=== PATIENT | male | born 1950 | race African-American/Black ===

== ENCOUNTER 2016-05-07 17:30 | Emergency (ER) | payer OTHER, MEDICARE ==
--- NOTE | 2016-05-07 18:01 | ER Document Report ---
ED Medical Screen (RME) - General Stated Complaint: LEFT BUTTOCK /HIP PAIN Time seen by provider: 18:01 Mode of Arrival: Medic Information source: Patient Notes: 65yo male in by EMS afer falling and injuring his left hip and buttocks. TRAVEL OUTSIDE OF THE [place] IN LAST 30 DAYS: No - Related Data Allergies/Adverse Reactions: Shellfish * [Shellfish] Allergy (Severe, Verified 11/29/15 12:36) Gout Past Medical History - Past Medical History Cardiac Medical History: Reports: Hx Atrial Fibrillation - with RVR, Hx Congestive Heart Failure, Hx Coronary Artery Disease, Hx Hypercholesterolemia, Hx Hypertension, Hx Peripheral Vascular Disease Pulmonary Medical History: Reports: Hx Asthma, Hx Bronchitis, Hx COPD, Hx Pneumonia, Hx Sleep Apnea Endocrine Medical History: Reports: Hx Diabetes Mellitus Type 1, Hx Diabetes Mellitus Type 2 Renal/ Medical History: Reports: Hx Benign Prostatic Hyperplasia, Hx End Stage Renal Disease, Hx Hemodialysis, Hx Peritoneal Dialysis GI Medical History: Reports: Hx Gastroesophageal Reflux Disease Musculoskeltal Medical History: Reports Hx Arthritis, Reports Hx Gout Psychiatric Medical History: Reports: Hx Depression Past Surgical History: Reports: Hx Abdominal Surgery - Peritoneal dialysis catheter, since removed., Hx Cardiac Catheterization, Hx Cardiac Surgery - CABG x8, pacemaker, Hx Coronary Artery Bypass Graft - 2002, 5 vessel CABG, Hx Coronary Stent - x6, Hx Kidney (Renal Surgery) - port in abd and fistula, Hx Open Heart Surgery - 2001, Hx Pacemaker, Hx Tonsillectomy, Hx Vascular Surgery - STENTS-2 IN RIGHT LEG, 1 IN LEFT LEG. LEFT FOREARM AV FISTULA FOR DIALYSIS - Immunizations Immunizations up to date: Yes Hx Diphtheria, Pertussis, Tetanus Vaccination: Yes
[2016-05-07] MEDS ORDERED: ONDANSETRON 4 MG TAB.RAPDIS PO ONE (18:03)
[2016-05-07] MEDS ORDERED: OXYCODONE-ACETAMINOPHEN 5-325 MG TABLET PO ONE (18:03)
[2016-05-07] MEDS ORDERED: LIDOCAINE 5% (700 MG) TRANSDERMAL ADH..PATCH TP ONE (19:47)
[2016-05-07] MEDS ORDERED: KETOROLAC TROMETHAMINE 60 MG/2 ML SDV IM ONE (19:47)
--- NOTE | 2016-05-07 19:47 | ER Document Report ---
ED General - General Chief Complaint: Fall Stated Complaint: LEFT BUTTOCK /HIP PAIN Mode of Arrival: Medic Notes: Patient is a 65-year-old male who presents after having a mechanical fall onto his left buttock 3 days ago. States that he has had a constant dull aching pain to the area that is Progressively worse over the last 3 days which is what prompted him to come to the emergency department today. States that he had a mechanical fall and denies any associated syncope. Denies any injury to any additional location. He has been trying ibuprofen and [place] at home with only minimal improvement of his symptoms. States sitting on the area or touching the area worsens the pain. Denies a history of similar symptoms in the past. He has not seen his primary care physician regarding today's concerns. TRAVEL OUTSIDE OF THE [place] IN LAST 30 DAYS: No - Related Data Allergies/Adverse Reactions: Shellfish * [Shellfish] Allergy (Severe, Verified 05/07/16 18:27) Gout Past Medical History - General Information source: Patient - Social History Smoking Status: Never Smoker Chew tobacco use (# tins/day): No Frequency of alcohol use: None Drug Abuse: None Lives with: Spouse/Significant other Family History: Reviewed & Not Pertinent, Hypertension Patient has suicidal ideation: No Patient has homicidal ideation: No - Past Medical History Cardiac Medical History: Reports: Hx Atrial Fibrillation - with RVR, Hx Congestive Heart Failure, Hx Coronary Artery Disease, Hx Hypercholesterolemia, Hx Hypertension, Hx Peripheral Vascular Disease Pulmonary Medical History: Reports: Hx Asthma, Hx Bronchitis, Hx COPD, Hx Pneumonia, Hx Sleep Apnea Endocrine Medical History: Reports: Hx Diabetes Mellitus Type 1, Hx Diabetes Mellitus Type 2 Renal/ Medical History: Reports: Hx Benign Prostatic Hyperplasia, Hx End Stage Renal Disease, Hx Hemodialysis, Hx Peritoneal Dialysis GI Medical History: Reports: Hx Gastroesophageal Reflux Disease Musculoskeltal Medical History: Reports Hx Arthritis, Reports Hx Gout Psychiatric Medical History: Reports: Hx Depression Past Surgical History: Reports: Hx Abdominal Surgery - Peritoneal dialysis catheter, since removed., Hx Cardiac Catheterization, Hx Cardiac Surgery - CABG x8, pacemaker, Hx Coronary Artery Bypass Graft - 2002, 5 vessel CABG, Hx Coronary Stent - x6, Hx Kidney (Renal Surgery) - port in abd and fistula, Hx Open Heart Surgery - 2002, Hx Pacemaker, Hx Tonsillectomy, Hx Vascular Surgery - STENTS-2 IN RIGHT LEG, 1 IN LEFT LEG. LEFT FOREARM AV FISTULA FOR DIALYSIS - Immunizations Immunizations up to date: Yes Hx Diphtheria, Pertussis, Tetanus Vaccination: Yes Hx Pneumococcal Vaccination: 02/28/13 Review of Systems - Review of Systems Notes: Constitutional: Negative for fever. Eyes: Negative for visual changes. ENT: Negative for facial injury Cardiovascular: Negative for chest injury. Respiratory: Negative for shortness of breath. Gastrointestinal: Negative for abdominal injury. Genitourinary: Negative for genital injury Musculoskeletal: Negative for back injury. Positive for left buttock injury Skin: Negative for laceration/abrasions. Neurological: Negative for head injury. Physical Exam - Vital signs Vitals: Temp Pulse Resp BP Pulse Ox 97.9 F 54 L 22 H 128/68 H 93 05/07/16 18:10 05/07/16 18:10 05/07/16 18:10 05/07/16 18:10 05/07/16 18:10 Interpretation: Tachycardic Notes: PHYSICAL EXAMINATION: GENERAL: Well-appearing, no acute distress. HEAD: Atraumatic, normocephalic. EYES: Pupils equal round and reactive to light, extraocular movements intact, sclera anicteric, conjunctiva are normal. ENT: nares patent, no oral pharyngeal trauma. No hemotympanum, no Bautista's sign , no raccoon eyes. NECK: No midline cervical spine tenderness. Patient able to move their head to 45 bilaterally without any discomfort. LUNGS: Breath sounds clear to auscultation bilaterally and equal. No wheezes rales or rhonchi. HEART: Regular rate and rhythm without murmurs. CHEST WALL: No ecchymosis over the chest wall. ABDOMEN: Soft, nontender, normoactive bowel sounds. No guarding, no rebound. No seatbelt sign. EXTREMITIES: Normal range of motion, no pitting or edema. No long bone deformities. BACK: No midline spinal tenderness, step-offs, or deformities. NEUROLOGICAL: Face symmetric. Tongue protrudes midline. Extraocular motions intact. Pupils are 2 mm and equally reactive. Normal speech, normal gait. 5 out of 5 strength in both the distal and proximal upper and lower extremities bilaterally. Sensation is grossly intact throughout. Finger to nose testing normal. Pronator drift normal. PSYCH: Normal mood, normal affect. SKIN: Warm, Dry, normal turgor, there is bruising over the left buttock Course - Re-evaluation Re-evalutation: 05/08/16 03:22 Presentation of a well patient in no acute distress, vitals within normal limits after a fall. No focal neurologic deficits on exam, no evidence of basilar skull fracture on exam without evidence of hemotympanum, raccoon eyes, or periauricular hematoma. No papilledema. Patient is not on anticoagulation. GCS is 15. No loss of consciousness. No episodes of vomiting. Patient is therefore negative via [place] head CT criteria and CT imaging will not be obtained at this time. Patient also evaluated by nexus criteria and found to be negative. Patient is also negative by [place] C-spine criteria. No clinical evidence to suggest increased risk of cervical spine fracture. No indication for further imaging of the cervical spine. Patient has no focal deformities but does have bruising over the left buttock. Pelvis xray unremarkable. Chest and abdominal exam are benign without any focal tenderness, shortness of breath, or bruising over the chest or abdominal wall. Patient has no flank tenderness. There is no obvious findings on trauma exam today and therefore no further imaging or evaluation will be obtained at this time. I've instructed the patient to return to emergency room immediately should they have any worsening or new symptoms that are concerning to them. - Vital Signs Vital signs: Temp Pulse Resp BP Pulse Ox 98.2 F 86 20 121/67 96 05/07/16 20:28 05/07/16 20:28 05/07/16 20:28 05/07/16 20:28 05/07/16 20:28 - Diagnostic Test Radiology reviewed: Image reviewed, Reports reviewed Radiology results interpreted by me: 05/08/16 03:23 Pelvis x-ray: No acute fracture Discharge - Discharge Clinical Impression: Left buttock pain Fall Qualifiers: Encounter type: initial encounter Qualified Code(s): W19.XXXA - Unspecified fall, initial encounter Condition: Good Disposition: HOME, SELF-CARE Additional Instructions: You have been seen in the Emergency Department (ED) today following a fall your workup today did not reveal any injuries that require you to stay in the hospital. You can expect, though, to be stiff and sore for the next several days. You can take ibuprofen 600 mg every 6 hours as needed for pain. You can apply a hot pack or electric heating pad to the sore areas. You can also use topical "Aspercreme with lidocaine" to sore areas as needed. Please follow up with your primary care doctor as soon as possible regarding today's ED visit and your recent accident. Call your doctor or return to the ED if you develop a sudden or severe headache , confusion, slurred speech, facial droop, weakness or numbness in any arm or leg, extreme fatigue, vomiting more than two times, severe abdominal pain, or other symptoms that concern you. Referrals: NELA BAEZ MD [Primary Care Provider] - Follow up as needed
[2016-05-07 21:09] VITALS: BP 121/67
== END 2016-05-07 20:28 | disposition home or self-care (01) ==
LOC: ER 17:30
DX: M53.3 Sacrococcygeal disorders, not elsewhere classified (principal); M25.552 Pain in left hip; W19.XXXA Unspecified fall, initial encounter
CPT/HCPCS: 99284; 96372; 73502; J1885; S0119

== ENCOUNTER → 2017-07-26 | Outpatient (CLI) | payer MEDICARE, OTHER ==
--- NOTE | 2017-07-26 13:19 | RADIOLOGY REPORT (SQ) ---
EXAM DESCRIPTION: FOOT LEFT COMPLETE COMPLETED DATE/TIME: 07/26/2017 10:57 am REASON FOR STUDY: NON-PRS CHRONIC ULCER OTH PRT LEFT FOOT W FAT LAYER EXPOSED L97.522 NON-PRS CHRON IC ULCER OTH PRT LEFT FOOT W FAT LAYER COMPARISON: 07/26/2013, 07/19/2013, 06/01/2013 NUMBER OF VIEWS: Three views. TECHNIQUE: AP, lateral and oblique radiographic images acquired of the left foot. LIMITATIONS: None. FINDINGS: Grossly normal bone density. 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 There is densely ossified periosteal [place] at the distal 2nd and 3rd metatarsals from old healed osteomyelitis. No aggressive bony resorption worrisome for active osteomyelitis. IMPRESSION: No plain film findings worrisome for active osteomyelitis. TECHNICAL DOCUMENTATION: JOB ID: [id number] [employer]- All Rights Reserved Reading location - IP/workstation name: [email or web address]
== END ==
LOC: OD 10:35
PROVIDERS: ATTEND Preventive Medicine Undersea and Hyperbaric Medicine
DX: L97.522 Non-pressure chronic ulcer of other part of left foot with fat layer exposed (principal)

== ENCOUNTER 2017-12-25 17:30 | Emergency (ER) | payer MEDICARE, OTHER ==
[2017-12-25] MEDS ORDERED: ASPIRIN 81 MG TABLET, CHEWABLE PO ONE (17:31)
[2017-12-25 18:17] LABS: ABSOLUTE BASOPHILS # (AUTO) 0.1 10^3/uL (0.0-0.2); ABSOLUTE EOSINOPHILS # (AUTO) 0.1 10^3/uL (0.0-0.6); ABSOLUTE LYMPHOCYTES (AUTO) 0.4 10^3/uL (0.5-4.7); ABSOLUTE MONOCYTES (AUTO) 0.8 10^3/uL (0.1-1.4); ABSOLUTE NEUT (AUTO) 4.8 10^3/uL (1.7-8.2); BASOPHILS % (AUTO) 1.1 % (0-2); EOSINOPHILS % (AUTO) 2.2 % (0-6); HEMATOCRIT 29.7 % (37.9-51.0); HEMOGLOBIN 9.5 g/dL (13.5-17.0); MEAN CORPUSCULAR HEMOGLOBIN 29.4 pg (27.0-33.4); MEAN CORPUSCULAR VOLUME 92 fl (80-97); PLATELET COUNT 124 10^3/uL (150-450); RED BLOOD COUNT 3.23 10^6/uL (4.35-5.55); RED CELL DISTRIBUTION WIDTH 19.4 % (11.5-14.0); SEGMENTED NEUTROPHILS % (AUTO) 77.7 % (42-78); TOTAL CELLS COUNTED % (AUTO) 100 %; WHITE BLOOD COUNT 6.2 10^3/uL (4.0-10.5)
--- NOTE | 2017-12-25 18:29 | RADIOLOGY REPORT (SQ) ---
EXAM DESCRIPTION: CHEST SINGLE VIEW COMPLETED DATE/TIME: 12/25/2017 6:17 pm REASON FOR STUDY: cp COMPARISON: 04/04/2016. NUMBER OF VIEWS: One view. TECHNIQUE: Single frontal radiographic view of the chest acquired. LIMITATIONS: None. FINDINGS: LUNGS AND PLEURA: No opacities, masses or pneumothorax. No pleural effusion. MEDIASTINUM AND HILAR STRUCTURES: No masses or contour abnormality. HEART AND VASCULATURE: Cardiac enlargement. Mild vascular congestion. BONES: No acute findings. HARDWARE: Sternotomy wires. OTHER: No other significant finding. IMPRESSION: CARDIOMEGALY. MILD VASCULAR CONGESTION. TECHNICAL DOCUMENTATION: JOB ID: [id number] [employer]- All Rights Reserved Reading location - IP/workstation name: [email or web address]
[2017-12-25 18:41] LABS: ALANINE AMINOTRANSFERASE 25 U/L (21-72); ALBUMIN 4.3 g/dL (3.5-5.0); ALKALINE PHOSPHATASE 134 U/L (38-126); ANION GAP 19 (5-19); ASPARTATE AMINO TRANSFERASE 34 U/L (17-59); BILIRUBIN,DIRECT 0.6 mg/dL (0.0-0.4); BILIRUBIN,TOTAL 0.7 mg/dL (0.2-1.3); BLOOD UREA NITROGEN 19 mg/dL (7-20); CALCIUM 10.2 mg/dL (8.4-10.2); CARBON DIOXIDE 24 mmol/L (22-30); CHLORIDE 98 mmol/L (98-107); CREATINE KINASE 55 U/L (55-170); GLUCOSE 85 mg/dL (75-110); POTASSIUM 4.7 mmol/L (3.6-5.0); SODIUM 141.4 mmol/L (137-145); TOTAL PROTEIN 7.8 g/dL (6.3-8.2)
[2017-12-25 18:54] LABS: CREATINE KINASE MB 1.03 ng/mL (<4.55)
[2017-12-25 18:57] LABS: TROPONIN I 0.378 ng/mL
[2017-12-25] MEDS ORDERED: MORPHINE SULFATE 10 MG/ML INJ IV ONE ×2 (19:11→20:19)
[2017-12-25] MEDS ORDERED: NITROGLYCERIN 2% OINTMENT 1 GM PACKET TP ONE (19:11)
[2017-12-25] MEDS ORDERED: HEPARIN SODIUM,PORCINE/D5W 25,000 UNIT/250 ML RTUINJ IV PRN (19:12)
[2017-12-25] MEDS ORDERED: HEPARIN SOD (PORCINE) 1,000 UNIT/ML 10 ML VIAL IV ONE (19:12)
--- NOTE | 2017-12-25 19:18 | ER Document Report ---
ED General - General Chief Complaint: Chest Pain Stated Complaint: CHEST PAIN Time Seen by Provider: 12/25/17 19:03 TRAVEL OUTSIDE OF THE [place] IN LAST 30 DAYS: No - HPI Notes: 67-year-old male with a known history of diabetes, CAD, end-stage renal disease on dialysis presents with chest pain. Patient describes sudden onset around 3: 30 PM of substernal chest pain is grossly nonradiating. Of note, is been vomiting for the last 3 days intermittently, food and fluid, no coffee grounds or hematemesis. Pain is somewhat pressure-like and aching. States it is sometimes worse with motion. No discrete injury. He has a history of 5 vessel bypass remotely, believes he has had stents but is otherwise unclear about his cardiac history. No other modifying factors, no other associated symptoms, no other provocative or palliative factors. Indicates that today he had a full and regular dialysis. - Related Data Allergies/Adverse Reactions: Shellfish * [Shellfish] Allergy (Severe, Verified 12/25/17 18:00) Gout Past Medical History - Social History Smoking Status: Former Smoker Frequency of alcohol use: None Drug Abuse: None Family History: Reviewed & Not Pertinent, Hypertension Patient has suicidal ideation: No Patient has homicidal ideation: No - Past Medical History Cardiac Medical History: Reports: Hx Atrial Fibrillation - with RVR, Hx Congestive Heart Failure, Hx Coronary Artery Disease, Hx Hypercholesterolemia, Hx Hypertension, Hx Peripheral Vascular Disease Pulmonary Medical History: Reports: Hx Asthma, Hx Bronchitis, Hx COPD, Hx Pneumonia, Hx Sleep Apnea Endocrine Medical History: Reports: Hx Diabetes Mellitus Type 1, Hx Diabetes Mellitus Type 2 Renal/ Medical History: Reports: Hx Benign Prostatic Hyperplasia, Hx End Stage Renal Disease, Hx Hemodialysis. Denies: Hx Peritoneal Dialysis - T//SUN GI Medical History: Reports: Hx Gastroesophageal Reflux Disease Musculoskeletal Medical History: Reports Hx Arthritis, Reports Hx Gout Psychiatric Medical History: Reports: Hx Depression Past Surgical History: Reports: Hx Abdominal Surgery - Peritoneal dialysis catheter, since removed., Hx Cardiac Catheterization, Hx Cardiac Surgery - CABG x8, pacemaker, Hx Coronary Artery Bypass Graft - 2001, 5 vessel CABG, Hx Coronary Stent - x6, Hx Kidney (Renal Surgery) - port in abd and fistula, Hx Open Heart Surgery - 2001, Hx Orthopedic Surgery - left AKA, Hx Pacemaker, Hx Tonsillectomy, Hx Vascular Surgery - STENTS-2 IN RIGHT LEG, 1 IN LEFT LEG. LEFT FOREARM AV FISTULA FOR DIALYSIS - Immunizations Immunizations up to date: Yes Hx Diphtheria, Pertussis, Tetanus Vaccination: Yes Hx Pneumococcal Vaccination: 02/28/13 Review of Systems - Review of Systems Notes: Review of systems as in the history of present illness, otherwise negative x 10 systems. Physical Exam - Vital signs Vitals: Pulse Ox 98 12/25/17 17:30 - Notes Notes: General: Well developed . HEENT: Normocephalic, atraumatic. Pupils equal round reactive to light. No JVD. Chest: No trauma. There is exquisitely reproducible midsternal chest tenderness without trauma or skin abnormality. Respiratory: Good air exchange, normal excursion. Cardiac: Regular rhythm. No murmurs or gallops. Abdomen: Soft, benign. Nondistended. Nontender. Back: No asymmetry or gross abnormality. Motor: Grossly normal power and tone. Neurologic: Alert, nonfocal. Cranial nerves II-12 are intact. Sensation intact. Vascular: Well perfused. Normal peripheral pulses. Skin: No petechiae or purpura. Remedies: Left AV fistula is noted. Normal bruit and thrill. Course - Re-evaluation Re-evalutation: 12/25/17 19:18 67-year-old male the after mentioned symptoms. Of note, his ECG appears to have some ischemic changes in the inferior lateral leads with mild ST depressions. These appear new compared to previous ECG from a year or 2 ago. Patient be treated with aspirin, morphine, transdermal nitrates. We will empirically heparinized. Of note, his initial troponin is elevated at 0.3. His underlying renal disease may have a component in terms of clearance but should not in an of itself it resulted in elevation. 12/25/17 22:07 Patient had near complete resolution of his pain with transdermal nitrates morphine and aspirin. Of note, he later complained of epigastric pain. When questioned at length, indicates been going on for greater than 3 months and is a chronic issue. Denies any alcohol abuse. I have added on LFTs and lipase. He has trace elevation in lipase and alk phos. Patient does have continued persistent ST depressions inferior and laterally. Of note, his labs are reviewed, he has pre-existing renal failure. He has an elevated troponin at 0.37. Patient remains pain-free at the time of transfer. On the patient's renal failure would lead to poor troponin clearance, initial event likely was a result of cardiac ischemia. There are currently no available beds, patient be transferred to [facility] where he can undergo definitive evaluation and management by cardiology. He can also undergo further workup of his chronic abdominal pain. 12 Lead ECG Analysis A 12 lead ECG is obtained and shows a sinus rhythm, normal QRS, normal QTC. Lateral and inferior ST depressions are noted. These appear to be new compared to previous ECG in the system. 12/25/17 22:10 12/25/17 23:05 Patient is evaluated just prior to transfer. Remains pain-free. - Vital Signs Vital signs: Temp Pulse Resp BP Pulse Ox 97.9 F 88 20 142/85 H 100 12/25/17 18:07 12/25/17 18:07 12/25/17 22:56 12/25/17 22:56 12/25/17 22:56 - Laboratory Result Diagrams: 12/25/17 17:54 12/25/17 17:54 Laboratory results interpreted by me: 12/25/17 12/25/17 12/25/17 17:54 17:54 17:54 RBC 3.23 L Hgb 9.5 L Hct 29.7 L RDW 19.4 H Plt Count 124 L Lymphocytes % 6.0 L Absolute Lymphocytes 0.4 L Creatinine 4.81 H Est GFR ( Amer) 15 L Est GFR (Non-Af Amer) 12 L Direct Bilirubin 0.6 H Alkaline Phosphatase 134 H Lipase 332.3 H Discharge - Discharge Clinical Impression: ACS (acute coronary syndrome) Condition: Good Disposition: [facility]
[2017-12-25 19:24] LABS: INTERNATIONAL RATION (INR) 1.13; PROTHROMBIN TIME 15.1 SEC (11.4-15.4)
[2017-12-25 19:25] LABS: PARTIAL THROMBOPLASTIN TIME 34.3 SEC (23.5-35.8)
--- NOTE | 2017-12-25 19:56 | EKG REPORT ---
SEVERITY:- ABNORMAL ECG - SINUS TACHYCARDIA LEFT ANTERIOR FASCICULAR BLOCK PROBABLE LVH WITH SECONDARY REPOL ABNRM PROLONGED QT INTERVAL : Confirmed by: Royce Thomas MD 25-Dec-2017 19:56:09
[2017-12-25 21:24] LABS: LIPASE 332.3 U/L (23-300)
[2017-12-25] MEDS ORDERED: HEPARIN SOD (PORCINE) 1,000 UNIT/ML 10 ML VIAL IV PRN (22:12)
[2017-12-25 23:03] VITALS: BP 142/85
--- NOTE | 2017-12-26 07:52 | EKG REPORT ---
SEVERITY:- ABNORMAL ECG - ATRIAL FIBRILLATION VENTRICULAR PREMATURE COMPLEX LEFT ANTERIOR FASCICULAR BLOCK PROBABLE LVH WITH SECONDARY REPOL ABNRM PROLONGED QT INTERVAL : Confirmed by: Royce Thomas MD 26-Dec-2017 07:51:58
== END 2017-12-25 23:07 | disposition short-term general hospital (02) ==
LOC: ER 17:30
DX: I24.9 Acute ischemic heart disease, unspecified (principal); I13.2 Hypertensive heart and chronic kidney disease with heart failure and with stage 5 chronic kidney disease, or end stage renal disease; E11.22 Type 2 diabetes mellitus with diabetic chronic kidney disease; N18.6 End stage renal disease; I50.9 Heart failure, unspecified; R07.9 Chest pain, unspecified; Z99.2 Dependence on renal dialysis; J44.9 Chronic obstructive pulmonary disease, unspecified
CPT/HCPCS: 93005; 96376; 99285; 96375; 96365; 96366; 36415; 82553; 82550; 83690; 83735; 85025; 85610; 85730; 80053; 84484; 71045; 93010; J1644 ×2; A9270; J2270

== ENCOUNTER → 2018-05-13 | Outpatient (CLI) | payer MEDICARE, OTHER ==
--- NOTE | 2018-05-13 11:54 | RADIOLOGY REPORT (SQ) ---
EXAM DESCRIPTION: TIBIA FIBULA RIGHT COMPLETED DATE/TIME: 05/13/2018 10:23 am REASON FOR STUDY: NON-PRESSURE CHRONIC ULCER OF RIGHT CALF W FAT LAYER EXPOSED L97.512 NON-PRS DOCUMENT CONTROL MANAGER ROBERT ULCER OTH PRT RIGHT FOOT W FAT LAYER L97.212 NON-PRESSURE CHRONIC ULCER OF RIGHT CALF W FAT LAYE R COMPARISON: None. NUMBER OF VIEWS: Two views. TECHNIQUE: Two radiographic images acquired of the right tibia and fibula to include the knee and an kle in at least one projection. LIMITATIONS: None. FINDINGS: MINERALIZATION: Normal. BONES: No acute fracture or dislocation. No worrisome bone lesions. SOFT TISSUES: Diffuse swelling. No foreign body. Vascular calcifications. OTHER: No other significant finding. IMPRESSION: No evidence of osteomyelitis. TECHNICAL DOCUMENTATION: JOB ID: [id number] [employer]- All Rights Reserved Reading location - IP/workstation name: [email or web address]
== END ==
LOC: WC 09:39
PROVIDERS: ATTEND Preventive Medicine Undersea and Hyperbaric Medicine
DX: E11.621 Type 2 diabetes mellitus with foot ulcer (principal); L97.512 Non-pressure chronic ulcer of other part of right foot with fat layer exposed; L97.212 Non-pressure chronic ulcer of right calf with fat layer exposed

== ENCOUNTER 2018-09-26 14:30 | Emergency (ER) | payer MEDICARE, OTHER ==
--- NOTE | 2018-09-26 15:05 | ER Document Report ---
ED Medical Screen (RME) - General Chief Complaint: Foot Pain Stated Complaint: FOOT PAIN Time Seen by Provider: 09/26/18 14:56 Primary Care Provider: NELA BEAZ MD [Primary Care Provider] - Follow up as needed TRAVEL OUTSIDE OF THE [place] IN LAST 30 DAYS: No - HPI Notes: 09/26/18 15:03 Patient is a 68-year-old male with a history of AKA left leg, hyperglyceridemia, hypertension, end-stage renal disease (see on dialysis every Sunday, , Sunday), previous diagnosis of diabetes (not currently on any medications) who presents complaining of wounds to the right anterior knee over the past few days and toes of his right foot that is been present for the past 2 to 3 weeks. Patient has noticed blackening of his toes and a foul odor to 1 of the wounds. Denies drug allergies. He did have dialysis today without any complications. Denies ANGEL, fever, neck pain, URI, CP, SOB, Abd pain, dysuria, back pain. I have treated and performed a rapid initial assessment of this patient. A comprehensive ED assessment and evaluation of the patient, analysis of test results and completion of medical decision making process will be conducted by additional ED providers. PHYSICAL EXAMINATION: GENERAL: Well-appearing, well-nourished and in no acute distress. A&Ox4. Answers questions appropriately. LUNGS: Breath sounds clear to auscultation bilaterally and equal. No wheezes rales or rhonchi. HEART: Regular rate and rhythm without murmurs, rubs, gallops. Rt knee: + foul smelling wound anterior knee with + tenderness. Rt foot: + necrotic appearing 2nd-4th digits with open sores/wounds noted. - Related Data Allergies/Adverse Reactions: No Known Allergies Allergy (Verified 09/26/18 14:32) Past Medical History - Past Medical History Cardiac Medical History: Reports: Hx Atrial Fibrillation - with RVR, Hx Congestive Heart Failure, Hx Coronary Artery Disease, Hx Hypercholesterolemia, Hx Hypertension, Hx Peripheral Vascular Disease Pulmonary Medical History: Reports: Hx Asthma, Hx Bronchitis, Hx COPD, Hx Pneumonia, Hx Sleep Apnea Endocrine Medical History: Reports: Hx Diabetes Mellitus Type 1, Hx Diabetes Mellitus Type 2 Renal/ Medical History: Reports: Hx Benign Prostatic Hyperplasia, Hx End Stage Renal Disease, Hx Hemodialysis. Denies: Hx Peritoneal Dialysis - T//SUN GI Medical History: Reports: Hx Gastroesophageal Reflux Disease Musculoskeltal Medical History: Reports Hx Arthritis, Reports Hx Gout Psychiatric Medical History: Reports: Hx Depression Past Surgical History: Reports: Hx Abdominal Surgery - Peritoneal dialysis catheter, since removed., Hx Cardiac Catheterization, Hx Cardiac Surgery - CABG x8, pacemaker, Hx Coronary Artery Bypass Graft - 2002, 5 vessel CABG, Hx Coronary Stent - x6, Hx Kidney (Renal Surgery) - port in abd and fistula, Hx Open Heart Surgery - 2001, Hx Orthopedic Surgery - left AKA, Hx Pacemaker, Hx Tonsillectomy, Hx Vascular Surgery - STENTS-2 IN RIGHT LEG, 1 IN LEFT LEG. LEFT FOREARM AV FISTULA FOR DIALYSIS - Immunizations Immunizations up to date: Yes Hx Diphtheria, Pertussis, Tetanus Vaccination: Yes Physical Exam - Vital signs Vitals: Temp Pulse Resp BP Pulse Ox 98.2 F 87 18 178/69 H 95 09/26/18 14:35 09/26/18 14:35 09/26/18 14:35 09/26/18 14:35 09/26/18 14:35 Course - Vital Signs Vital signs: Temp Pulse Resp BP Pulse Ox 98.2 F 87 18 178/69 H 95 09/26/18 14:35 09/26/18 14:35 09/26/18 14:35 09/26/18 14:35 09/26/18 14:35 Doctor's Discharge - Discharge Referrals: NELA BAEZ MD [Primary Care Provider] - Follow up as needed
--- NOTE | 2018-09-26 15:48 | RADIOLOGY REPORT (SQ) ---
EXAM DESCRIPTION: FOOT RIGHT COMPLETE COMPLETED DATE/TIME: 09/26/2018 3:20 pm REASON FOR STUDY: ?osteo 2nd-4th digits, + wounds/black COMPARISON: 12/04/2014, 03/15/2015 NUMBER OF VIEWS: Three views. TECHNIQUE: AP, lateral and oblique radiographic images acquired of the right foot. LIMITATIONS: None. FINDINGS: MINERALIZATION: Normal. BONES: Redemonstrated postoperative findings of distal right 5th metatarsal resection. There is bony resorption of the distal phalanx great toe seen on AP view, new from prior examination dated 5. Evaluation of the remaining digits is difficult due to flexion although there is no obvious erosi on or sclerosis. JOINTS: No effusions. SOFT TISSUES: No soft tissue swelling. No foreign body. OTHER: No other significant finding. IMPRESSION: 1. No fracture or dislocation of the right foot. Redemonstrated postoperative findings o f distal right 5th metatarsal resection. 2. There is bony resorption of the distal phalanx great toe seen on AP view, new from prior examinati on dated 12/04/2014 and concerning for osteomyelitis. 3. Evaluation of the remaining digits is difficult due to flexion although there is no obvious erosio n or sclerosis. Consider MRI to more sensitively evaluate for marrow edema and osteomyelitis if susp ected. TECHNICAL DOCUMENTATION: JOB ID: [id number] [employer]- All Rights Reserved Reading location - IP/workstation name: [email or web address]
--- NOTE | 2018-09-26 15:50 | RADIOLOGY REPORT (SQ) ---
EXAM DESCRIPTION: KNEE RIGHT 4 VIEWS COMPLETED DATE/TIME: 09/26/2018 3:20 pm REASON FOR STUDY: wound anterior knee COMPARISON: None. NUMBER OF VIEWS: Four views. TECHNIQUE: AP, lateral, and both oblique radiographic images acquired of the right knee. LIMITATIONS: None. FINDINGS: MINERALIZATION: Osteopenia. BONES: No acute fracture or dislocation. No worrisome bone lesions. JOINT: No effusion. SOFT TISSUES: No soft tissue swelling. No radio-opaque foreign body. OTHER: Extensive vascular calcinosis about the right knee. IMPRESSION: No fracture or dislocation of the right knee. TECHNICAL DOCUMENTATION: JOB ID: [id number] [employer]- All Rights Reserved Reading location - IP/workstation name: [email or web address]
[2018-09-26 16:23] LABS: ABSOLUTE BASOPHILS # (AUTO) 0.1 10^3/uL (0.0-0.2); ABSOLUTE EOSINOPHILS # (AUTO) 0.2 10^3/uL (0.0-0.6); ABSOLUTE LYMPHOCYTES (AUTO) 0.4 10^3/uL (0.5-4.7); ABSOLUTE MONOCYTES (AUTO) 0.6 10^3/uL (0.1-1.4); BASOPHILS % (AUTO) 1.2 % (0-2); EOSINOPHILS % (AUTO) 3.6 % (0-6); HEMATOCRIT 36.8 % (37.9-51.0); HEMOGLOBIN 11.9 g/dL (13.5-17.0); LYMPHOCYTES % (AUTO) 6.9 % (13-45); MEAN CORPUSCULAR HEMOGLOBIN 28.5 pg (27.0-33.4); MEAN CORPUSCULAR HGB CONC 32.4 g/dL (32.0-36.0); MEAN CORPUSCULAR VOLUME 88 fl (80-97); MONOCYTES % (AUTO) 12.3 % (3-13); PLATELET COUNT 156 10^3/uL (150-450); RED BLOOD COUNT 4.18 10^6/uL (4.35-5.55); RED CELL DISTRIBUTION WIDTH 17.3 % (11.5-14.0); TOTAL CELLS COUNTED % (AUTO) 100 %; WHITE BLOOD COUNT 5.3 10^3/uL (4.0-10.5)
[2018-09-26 16:52] LABS: ALANINE AMINOTRANSFERASE 19 U/L (21-72); ALBUMIN 5.2 g/dL (3.5-5.0); ALKALINE PHOSPHATASE 273 U/L (38-126); BILIRUBIN,DIRECT 0.7 mg/dL (0.0-0.4); BILIRUBIN,TOTAL 0.9 mg/dL (0.2-1.3); BLOOD UREA NITROGEN 34 mg/dL (7-20); CALCIUM 9.5 mg/dL (8.4-10.2); GLUCOSE 82 mg/dL (75-110); POTASSIUM 5.6 mmol/L (3.6-5.0); TOTAL PROTEIN 9.9 g/dL (6.3-8.2)
[2018-09-26 16:57] LABS: CARBON DIOXIDE 29 mmol/L (22-30); CHLORIDE 94 mmol/L (98-107); SODIUM 143.2 mmol/L (137-145)
[2018-09-26 17:00] LABS: ASPARTATE AMINO TRANSFERASE 15 U/L (17-59)
[2018-09-26 17:06] LABS: ANION GAP 20 (5-19)
--- NOTE | 2018-09-26 18:13 | XCELERA REPORT ---
[address] [address] Lower Extremity Arterial Evaluation Name: KALIA SANCHEZ Age: 68 yrs Gender: Male : 1950 Patient Status: Emergency Patient Location: ER Study Date: 09/26/2018 04:57 PM Procedure: A color flow and duplex scan of the lower extremity arteries was performed on the right with velocity and waveform anaylsis. Reason For Study: diminished pulse, PAD, recent stent Ordering Physician: WILL GOLDBERG Performed By: Dipti Cunningham Measurements and Calculations Right Left MIXED [employer] PSV 126.3 cm/sec Prox PFA PSV -172.0 cm/sec Prox SFA PSV -16.1 cm/sec Mid SFA PSV -37.9 cm/sec Dist SFA PSV -58.5 cm/sec Prox Pop A PSV 45.9 cm/sec Dist Pop A PSV -35.8 cm/sec Prox WENCESLAO PSV 24.2 cm/sec Dist WENCESLAO PSV 41.5 cm/sec Prox [employer] PSV 33.3 cm/sec Prox Jag A 33.9 cm/sec PSV Mid Jag A PSV 31.1 cm/sec Cristobal Pedis PSV 32.4 cm/sec Right Side Arterial Evaluation Normal velocity and monophasic waveforms, spectral broadening noted in the Common Femoral artery. Monophasic with low normal velocity in the Popliteal. Occluded Posterior tibial and Peroneal arteries. Reconstituted with very low velocities, spectral broadening and monophasic flow in the infrageniculate vessels . Ankle Brachial index not obtained . Critical Findings Discussed with Dr. Goldberg in the emergency room at about 1800. Interpretation Summary Severe hemodynamically significant lesions in the right lower extremity only, on duplex imaging, at rest. Inflow disease with severe sequential changes in the Femoral and infrageniculate vessels. Almost no flow in the low leg. Compatible with tissue loss. : WILL GOLDBERG > Esvin Quintero
[2018-09-26] MEDS ORDERED: HEPARIN SODIUM,PORCINE/D5W 25,000 UNIT/250 ML RTUINJ IV PRN (18:53)
[2018-09-26] MEDS ORDERED: HEPARIN SOD (PORCINE) 1,000 UNIT/ML 10 ML VIAL IV ONE (18:53)
[2018-09-26] MEDS ORDERED: SODIUM POLYSTYRENE SULFONATE 15 GM/60 ML PO ONE (18:57)
[2018-09-26 19:09] LABS: VENOUS BLOOD BASE EXCESS 6.3 mmol/L; VENOUS BLOOD HCO3 31.1 mmol/L (20-32); VENOUS BLOOD PCO2 45.6 mmHg (35-63); VENOUS BLOOD PH 7.45 (7.30-7.42)
[2018-09-26] MEDS ORDERED: ONDANSETRON HCL INJ/PF 4 MG/2 ML SDV IV ONE (19:20)
[2018-09-26] MEDS ORDERED: MORPHINE SULFATE 10 MG/ML INJ IV ONE (19:20)
--- NOTE | 2018-09-26 19:42 | ER Document Report ---
ED General - General Chief Complaint: Foot Pain Stated Complaint: FOOT PAIN Time Seen by Provider: 09/26/18 14:56 Primary Care Provider: NELA BAEZ MD [Primary Care Provider] - Follow up as needed TRAVEL OUTSIDE OF THE [place] IN LAST 30 DAYS: No - HPI Notes: Patient is a 68-year-old male, complicated medical history including end-stage renal disease and peripheral artery disease, who presents to the emergency department for evaluation of sores on his second, third, fourth toes. He states that been going on for about a week. He states that recently he had vascular intervention by Dr. Ortega at [facility]. He states he was told to call if there are any complications, but he has not yet called. He denies any fevers or chills. No nausea or vomiting. He states he has diminished sensation to his right foot. He does have a left AKA. He states t hat he has a prosthesis but he is getting a new one. He currently has a power chair. He notes that he was dialyzed today. He states he had 4 pounds taken off. He normally takes Kayexalate at home as well. He states he has not been home to take it today. - Related Data Allergies/Adverse Reactions: No Known Allergies Allergy (Verified 09/26/18 14:32) Past Medical History - General Information source: Patient - Social History Smoking Status: Never Smoker Frequency of alcohol use: None Drug Abuse: None Family History: Reviewed & Not Pertinent, Hypertension Patient has suicidal ideation: No Patient has homicidal ideation: No - Past Medical History Cardiac Medical History: Reports: Hx Atrial Fibrillation - with RVR, Hx Congestive Heart Failure, Hx Coronary Artery Disease, Hx Hypercholesterolemia, Hx Hypertension, Hx Peripheral Vascular Disease Pulmonary Medical History: Reports: Hx Asthma, Hx Bronchitis, Hx COPD, Hx Pneumonia, Hx Sleep Apnea Endocrine Medical History: Reports: Hx Diabetes Mellitus Type 2 - Not currently on medication Renal/ Medical History: Reports: Hx Benign Prostatic Hyperplasia, Hx End Stage Renal Disease, Hx Hemodialysis. Denies: Hx Peritoneal Dialysis - T//SUN GI Medical History: Reports: Hx Gastroesophageal Reflux Disease Musculoskeletal Medical History: Reports Hx Arthritis, Reports Hx Gout Psychiatric Medical History: Reports: Hx Depression Past Surgical History: Reports: Hx Abdominal Surgery - Peritoneal dialysis catheter, since removed., Hx Cardiac Catheterization, Hx Cardiac Surgery - CABG x8, pacemaker, Hx Coronary Artery Bypass Graft - 2002, 5 vessel CABG, Hx Coronary Stent - x6, Hx Kidney (Renal Surgery) - port in abd and fistula, Hx Open Heart Surgery - 2002, Hx Orthopedic Surgery - left AKA, Hx Pacemaker, Hx Tonsillectomy, Hx Vascular Surgery - STENTS-2 IN RIGHT LEG, 1 IN LEFT LEG. LEFT FOREARM AV FISTULA FOR DIALYSIS - Immunizations Immunizations up to date: Yes Hx Diphtheria, Pertussis, Tetanus Vaccination: Yes Hx Pneumococcal Vaccination: 02/28/13 Review of Systems - Review of Systems Constitutional: No symptoms reported EENT: No symptoms reported Cardiovascular: No symptoms reported Respiratory: No symptoms reported Gastrointestinal: No symptoms reported Genitourinary: No symptoms reported Musculoskeletal: See HPI Skin: See HPI Neurological/Psychological: No symptoms reported Physical Exam - Vital signs Vitals: Temp Pulse Resp BP Pulse Ox 98.2 F 87 18 178/69 H 95 09/26/18 14:35 09/26/18 14:35 09/26/18 14:35 09/26/18 14:35 09/26/18 14:35 - Notes Notes: Vital signs reviewed, please refer to chart. Head is normocephalic, atraumatic. Pupils equal round, reactive to light. Neck is supple without meningismus. Heart is regular rate and rhythm. Lungs are clear to auscultation bilaterally. Abdomen is soft, nontender, normoactive bowel sounds throughout. Extremities without cyanosis, clubbing. Left upper extremity yields fistula with palpable thrill. Left lower extremity reveals AKA, stump intact without signs of wound dehiscence, erythema, induration. Examination of the right lower extremity yields ischemic appearing changes to patient's second, third, fourth digits with blackening of the skin. He does have an acute appearing abrasion over the right inferior patella without active bleeding or clear foreign body. He has callused skin without obvious breakdown or ulceration on the right great toe. Sensation is markedly diminished to light touch and two-point discrimination throughout the entire lower extremity. I am unable to palpate any dorsalis pedis or posterior tibial pulses. Patient is awake, alert, neurological exam is nonfocal. Course - Re-evaluation Re-evalutation: 09/26/18 19:42 Patient presents emergency department for evaluation. Laboratory investigations were initially ordered through triage, as well as imaging. Imaging revealed signs of potential osteomyelitis in the right great toe. Clinically I do not see any signs of this. He is not febrile, is not officially diabetic. His blood sugars in the 80s. I do not have a strong suspicion for osteomyelitis. I am concerned, however, of ischemic and gangrenous changes of his toes. Arterial Doppler was ordered. Arterial Doppler essentially revealed and a completely o ccluded posterior tibial and dorsalis pedis. Monophasic flow. Findings consistent with ischemic tissue loss. Patient was started on heparin. Patient had noted that he had had vascular intervention performed at [facility]. He does state that this was recently, I did speak with Dr. Bedolla, surgeon at [facility]. He states that this intervention was performed on August 05. I discussed findings, including reading the official report for patient's arterial Doppler. He is concerned that the patient may require amputation. I did discuss with him treatment, including anti-coagulation with heparin. He does believe that that may be helpful, and low-dose heparin drip was started. Findings were explained to the patient. He was accepted by Dr. Bedolla for treatment at [facility], unfortunately they do not have any beds. Was also noted that the patient was hyperkalemic. He states he takes Kayexalate at home. He had been dialyzed earlier today. He was given Kayexalate here. I did place an order for repeat metabolic panel in the morning. Patient understands that transfer may take some time. We will continue to watch him here. 09/26/18 19:47 - Vital Signs Vital signs: Temp Pulse Resp BP Pulse Ox 98.2 F 87 14 180/77 H 94 09/26/18 14:35 09/26/18 14:35 09/26/18 18:41 09/26/18 18:41 09/26/18 18:41 - Laboratory Result Diagrams: 09/26/18 15:50 09/26/18 15:50 Laboratory results interpreted by me: 09/26/18 09/26/18 09/26/18 15:50 15:50 18:50 RBC 4.18 L Hgb 11.9 L Hct 36.8 L RDW 17.3 H Lymphocytes % 6.9 L Absolute Lymphocytes 0.4 L VBG pH 7.45 H Potassium 5.6 H Chloride 94 L Anion Gap 20 H BUN 34 H Creatinine 7.23 H Est GFR ( Amer) 9 L Est GFR (Non-Af Amer) 8 L Direct Bilirubin 0.7 H AST 15 L ALT 19 L Alkaline Phosphatase 273 H Total Protein 9.9 H Albumin 5.2 H - Diagnostic Test Radiology reviewed: Reports reviewed - Severe occlusion of the vasculature of right lower extremity Radiology results interpreted by me: 09/26/18 19:45 Foot X-Ray 09/26/18 15:01 IMPRESSION: 1. No fracture or dislocation of the right foot. Redemonstrated postoperative findings of distal right 5th metatarsal resection. 2. There is bony resorption of the distal phalanx great toe seen on AP view, new from prior examination dated 12/04/2014 and concerning for osteomyelitis. 3. Evaluation of the remaining digits is difficult due to flexion although there is no obvious erosion or sclerosis. Consider MRI to more sensitively evaluate for marrow edema and osteomyelitis if suspected. Knee X-Ray 09/26/18 15:01 IMPRESSION: No fracture or dislocation of the right knee. - EKG Interpretation by Me Additional EKG results interpreted by me: 09/26/18 19:46 Sinus mechanism with a rate of 82 bpm. Left axis deviation. IVCD. Nonspecific ST changes, but no acute changes concerning for ischemia or infarction. Unchanged from prior study performed December 17, 2017. Discharge - Discharge Clinical Impression: Hyperkalemia, Ischemic gangrene Condition: Stable Disposition: [facility] Admitting Provider: Graeme Referrals: NELA BAEZ MD [Primary Care Provider] - Follow up as needed
--- NOTE | 2018-09-26 19:46 | EKG REPORT ---
SEVERITY:- ABNORMAL ECG - SINUS RHYTHM LEFT ANTERIOR FASCICULAR BLOCK LEFT VENTRICULAR HYPERTROPHY ABNORMAL T, CONSIDER ISCHEMIA, LATERAL LEADS PROLONGED QT INTERVAL : Confirmed by: Phoebe Hernandez MD 26-Sep-2018 19:46:08
[2018-09-26] MEDS ORDERED: MAGNESIUM HYDROXIDE SUSP 30 ML UDCUP PO PRN (21:31)
[2018-09-26] MEDS ORDERED: MORPHINE SULFATE 10 MG/ML INJ IV PRN ×3 (21:31→21:41)
[2018-09-26] MEDS ORDERED: ACETAMINOPHEN 325 MG TABLET PO PRN (21:31)
[2018-09-26] MEDS ORDERED: HYDRALAZINE HCL INJ/PF 20 MG/1 ML SDV IV PRN (21:31)
[2018-09-26] MEDS ORDERED: MAG HYDROX/AL HYDROX/SIMETH SUSP 30 ML UDCUP PO PRN (21:31)
[2018-09-26] MEDS ORDERED: NITROGLYCERIN 0.4 MG/TAB 25 TAB/BOTTLE SL PRN (21:36)
[2018-09-26] MEDS ORDERED: SEVELAMER HCL 800 MG TABLET PO PRN (21:43)
[2018-09-26] MEDS: PANTOPRAZOLE SODIUM 40 MG VIAL IV SCH (21:52)
[2018-09-26] MEDS: MORPHINE SULFATE 10 MG/ML INJ IV PRN (21:53)
[2018-09-26] MEDS: SODIUM POLYSTYRENE SULFONATE 15 GM/60 ML PO SCH (21:55)
[2018-09-26] MEDS ORDERED: HEPARIN SOD (PORCINE) 1,000 UNIT/ML 10 ML VIAL IV PRN (21:57)
[2018-09-26] MEDS ORDERED: ZOLPIDEM TARTRATE 5 MG TABLET PO SCH (22:00)
[2018-09-26] MEDS ORDERED: GLUCAGON,HUMAN RECOMB 1 MG INJ IM PRN (22:00)
[2018-09-26] MEDS ORDERED: DEXTROSE 40% GEL 15 GM TUBE PO PRN (22:00)
[2018-09-26] MEDS ORDERED: DEXTROSE 40% GEL 15 GM TUBE X 2 PO PRN (22:00)
[2018-09-26] MEDS ORDERED: DEXTROSE 50%-WATER SYRINGE 12.5 GM/25 ML DOSE IV PRN (22:00)
[2018-09-26] MEDS ORDERED: DEXTROSE 50%-WATER SYRINGE 25 GM/50 ML DOSE IV PRN (22:00)
--- NOTE | 2018-09-26 23:03 | PDOC CONSULTATION ---
Consultation Consult Date: 09/26/18 - Awaiting transfer to [facility] for vascular surgical evaluation Attending physician:: WILL GOLDBERG - for ER Physicians service Provider Consulted: CLYDE HERNANDEZ - for Hospitalist service Consult reason:: Manage multiple chronic medical problems while awaiting transfer. History of Present Illness Admission Date/PCP: 09/26/2018 NELA BAEZ MD Patient complains of: Sores on right toes History of Present Illness: KALIA DAI is a 68 year old male who presented to the emergency room with a one-week history of sores on his right toes. He gave a history of sores developing on his right second third and fourth toes about 1 week prior to this emergency room visit. The sores developed following a vascular intervention performed by his vascular surgeon Dr. Ortega at the [facility]. Patient was instructed to contact his physician if he develop complications, but he chose instead to come to the emergency room for evaluation as the sores have progressively worsened (appear larger and deeper). His right foot and toes are not painful due to chronic diminished sensation secondary to his severe peripheral vascular disease. He was seen and evaluated in the emergency room by Dr. Deann Goldberg and arrangements were made for him to be transferred to the [facility] for further evaluation by Dr. Ortega and the vascular team as soon as a bed is available. Hospitalist services been consulted to manage his chronic medical problems during his expected 2 day stay in the emergency room awaiting bed vacancy and transfer. Past Medical History Cardiac Medical History: Reports: Atrial Fibrillation - with RVR, Congestive Heart Failure, Coronary Artery Disease, Hyperlipidema, Hypertension, Peripheral Vascular Disease Denies: DVT, Pulmonary Embolism, Heart Murmur Pulmonary Medical History: Reports: Asthma, Bronchitis, Pneumonia, Sleep Apnea EENT Medical History: Reports: Eyes - Corrective lenses Denies: Cataracts, Ears - Hearing aids Neurological Medical History: Denies: Hemorrhagic CVA, Ischemic CVA, Multiple Sclerosis, Seizures Endocrine Medical History: Reports: Diabetes Mellitus Type 2 - Not currently on medication Renal/ Medical History: Reports: End Stage Renal Disease - On routine hemodialysis 3 days/week (//SUN) Denies: Nephrolithiasis Malignancy Medical History: Reports: None GI Medical History: Reports: Gastroesophageal Reflux Disease Denies: Cirrhosis, Hepatitis Musculoskeltal Medical History: Reports: Arthritis, Gout Skin Medical History: Denies: Eczema, Psoriasis Psychiatric Medical History: Reports: Depression, Substance Abuse Denies: Alcohol Dependency, Tobacco Dependency Traumatic Medical History: Reports: None Hematology: Reports: Anemia Denies: Bleeding Tendencies Infectious Medical History: Reports: None Past Surgical History Past Surgical History: Reports: Cardiac Catheterization - Numerous procedures for diagnosis, monitoring and interventions, Coronary Artery Bypass Graft - 2002, 5 vessel CABG, Coronary Stent - x6, Orthopedic Surgery - left AKA, Pacemaker, Tonsillectomy, Vascular Surgery - Stents: X2 RLE, X1 LLE. AV Fistula for dialysis left forearm. 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 denies: DM Parental Family History Reviewed: Yes Children Family History Reviewed: No Sibling(s) Family History Reviewed.: Yes Medication/Allergy Home Medications: Tamsulosin HCl [Flomax] 0.4 mg PO DAILY 04/15/13 Nitroglycerin [Nitrostat 0.4 mg (1/150 Gr) Tabs 25/Bottle] 1 tab SL Q5MP PRN #0 bottle 06/06/13 Allopurinol [Zyloprim 100 mg Tablet] 100 mg PO DAILY 07/26/13 Fluoxetine HCl [Prozac] 40 mg PO DAILY 01/22/15 Sevelamer Carbonate [Renvela] 1,600 mg PO .SNACKS PRN 01/22/15 Sevelamer Carbonate [Renvela] 4,000 mg PO MEALS 01/22/15 Amlodipine Besylate [Norvasc 5 mg Tablet] 5 mg PO DAILY 09/26/18 Aspirin [Ecotrin 81 mg EC Tablet] 81 mg PO DAILY 09/26/18 Cholecalciferol (Vitamin D3) [Vitamin D3 1000 Unit Tablet] 1,000 unit PO DAILY 09/26/18 Cyanocobalamin (Vitamin B-12) [Vitamin B-12 1000 Mcg Tablet] 1,000 mcg PO DAILY 09/26/18 Gabapentin [Neurontin 400 mg Capsule] 400 mg PO Q8 09/26/18 Isosorbide Mononitrate [Imdur 30 mg Tablet.er] 30 mg PO DAILY 09/26/18 Mv-Mn/Iron/FA/Vit K/K.ginseng [[facility] Tab] 1 each PO DAILY 09/26/18 Vitamin E Mixed [Vitamin E] 400 unit PO DAILY 09/26/18 Zolpidem Tartrate [Ambien 5 mg Tablet] 5 mg PO QHS 09/26/18 Allergies/Adverse Reactions: No Known Allergies Allergy (Verified 09/26/18 14:32) Review of Systems Constitutional: ABSENT: chills, fever(s) Eyes: ABSENT: visual disturbances, other - Ocular pain Ears: ABSENT: hearing changes, other - Ear pain Nose, Mouth, and Throat: ABSENT: mouth pain, sore throat Cardiovascular: ABSENT: chest pain, dyspnea on exertion, edema, orthropnea, palpitations Respiratory: ABSENT: cough, dyspnea Gastrointestinal: ABSENT: abdominal pain, constipation, diarrhea, nausea, vomiting Genitourinary: ABSENT: dysuria, hematuria Musculoskeletal: ABSENT: joint swelling, muscle weakness Integumentary: PRESENT: as per HPI, wounds - Sores on the right second third and fourth toes, other - darkening pigmentation of extremities. ABSENT: pruritus, rash Neurological: ABSENT: confusion, convulsions, focal weakness, memory loss, syncope Psychiatric: ABSENT: anxiety, depression Endocrine: ABSENT: cold intolerance, heat intolerance Hematologic/Lymphatic: ABSENT: easy bleeding, easy bruising Physical Exam Vital Signs: Temp Pulse Resp BP Pulse Ox 98.2 F 87 11 L 191/73 H 96 09/26/18 14:35 09/26/18 14:35 09/26/18 20:01 09/26/18 20:01 09/26/18 19:01 Intake & Output 09/24/18 09/25/18 09/26/18 23:59 23:59 23:59 Weight 73.9 kg General appearance: PRESENT: no acute distress, cooperative Head exam: PRESENT: atraumatic, normocephalic Eye exam: ABSENT: conjunctival injection, scleral icterus Ear exam: PRESENT: normal external ear exam. ABSENT: bleeding, drainage Mouth exam: PRESENT: dry mucosa, neck supple Neck exam: ABSENT: JVD, thyromegaly, tracheal deviation Respiratory exam: PRESENT: clear to auscultation bernadette, symmetrical, unlabored Cardiovascular exam: PRESENT: RRR. ABSENT: clicks, gallop, rubs Pulses: PRESENT: normal radial pulses, other - 1+ posterior tibial pulse right lower extremity, cyanosis of mid-forefoot and 2nd - 4th toes secondary to poor/absent arterial blood supply.. ABSENT: normal dorsalis pedis pul - 1+ dorsalis pedis pulse right lower extremity (status post left AKA), cyanosis of mid-forefoot and 2nd - 4th toes secondary to poor/absent arterial blood supply. Vascular exam: PRESENT: normal capillary refill - In upper extremities. ABSENT: pallor GI/Abdominal exam: PRESENT: normal bowel sounds, soft Rectal exam: PRESENT: deferred Extremities exam: PRESENT: pedal edema - Cyanosis, coolness to touch and mild edema of the right lower extremity is noted. ABSENT: joint swelling, tenderness Musculoskeletal exam: ABSENT: deformity, dislocation Neurological exam: PRESENT: alert, oriented to person, oriented to place, oriented to time, oriented to situation, CN II-XII grossly intact, motor sensory deficit - Decreased sensation of the right lower extremity noted to gross exam Psychiatric exam: PRESENT: appropriate affect, normal mood Skin exam: PRESENT: cyanosis - Cyanosis and coolness to touch of the right mid- forefoot consistent with small vessel/arterial vascular insufficiency., dry, intact, other - Ulcerations/eschars of the right second third and fourth toes noted with gangrenous changes present.. ABSENT: jaundice, rash, urticaria Results Laboratory Results: 09/26/18 15:50 09/26/18 15:50 09/26/18 09/26/18 09/26/18 15:50 15:50 15:50 WBC 5.3 RBC 4.18 L Hgb 11.9 L Hct 36.8 L MCV 88 MCH 28.5 MCHC 32.4 RDW 17.3 H Plt Count 156 Seg Neutrophils % 76.0 Lymphocytes % 6.9 L Monocytes % 12.3 Eosinophils % 3.6 Basophils % 1.2 Absolute Neutrophils 4.0 Absolute Lymphocytes 0.4 L Absolute Monocytes 0.6 Absolute Eosinophils 0.2 Absolute Basophils 0.1 VBG pH VBG pCO2 VBG HCO3 VBG Base Excess Sodium 143.2 Potassium 5.6 H Chloride 94 L Carbon Dioxide 29 Anion Gap 20 H BUN 34 H Creatinine 7.23 H Est GFR ( Amer) 9 L Est GFR (Non-Af Amer) 8 L Glucose 82 Lactic Acid 0.9 Calcium 9.5 Total Bilirubin 0.9 AST 15 L ALT 19 L Alkaline Phosphatase 273 H Total Protein 9.9 H Albumin 5.2 H 09/26/18 18:50 WBC RBC Hgb Hct MCV MCH MCHC RDW Plt Count Seg Neutrophils % Lymphocytes % Monocytes % Eosinophils % Basophils % Absolute Neutrophils Absolute Lymphocytes Absolute Monocytes Absolute Eosinophils Absolute Basophils VBG pH 7.45 H VBG pCO2 45.6 VBG HCO3 31.1 VBG Base Excess 6.3 Sodium Potassium Chloride Carbon Dioxide Anion Gap BUN Creatinine Est GFR ( Amer) Est GFR (Non-Af Amer) Glucose Lactic Acid Calcium Total Bilirubin AST ALT Alkaline Phosphatase Total Protein Albumin Impressions: Foot X-Ray 09/26/18 15:01 IMPRESSION: 1. No fracture or dislocation of the right foot. Redemonstrated postoperative findings of distal right 5th metatarsal resection. 2. There is bony resorption of the distal phalanx great toe seen on AP view, new from prior examination dated 12/04/2014 and concerning for osteomyelitis. 3. Evaluation of the remaining digits is difficult due to flexion although there is no obvious erosion or sclerosis. Consider MRI to more sensitively evaluate for marrow edema and osteomyelitis if suspected. Knee X-Ray 09/26/18 15:01 IMPRESSION: No fracture or dislocation of the right knee. Assessment and Plan - Diagnosis (1) Ischemic gangrene Is this a current diagnosis for this admission?: Yes Plan: Patient is currently on heparin at a high dose anticoagulation rate and this will be managed by the emergency room physicians per protocol. This will be continued per the advice of Dr. Ortega, the patient's vascular surgeon at [facility]. Should the patient develop any pain related to his vascular disease he will receive morphine sulfate 2 to 4 mg IV every 2 hours on a as needed basis via a sliding scale. Daily CBC will be monitored as part of his ongoing evaluation. (2) Peripheral vascular disease Is this a current diagnosis for this admission?: Yes Plan: Patient will be continued on his heparin at high dose therapy levels as managed by the emergency room physicians per protocol. He will receive symptomatic and supportive care as required. Transferred to [facility] for further evaluation and treatment will be undertaken as soon as a bed is available. A lipid profile will be obtained in the patient's diabetes will be monitored closely and hyperglycemia will be treated as needed. (3) Hyperkalemia Is this a current diagnosis for this admission?: Yes Plan: Patient will be continued on his usual medications for his ESRD. This will include Kayexalate or other potassium excretion drugs if Kayexalate is not available. Patient's electrolytes will be monitored on a regular basis utilizing daily basic metabolic profiles and magnesium levels. Additionally a daily CBC will be monitored. (4) End stage renal failure on dialysis Is this a current diagnosis for this admission?: Yes Plan: The patient's nephrology should be consulted to provide for dialysis if necessary before the patient can be transferred. He was dialyzed earlier today and had a 4 pound weight loss due to dialysis. Dr. Portillo has been his supervisor screen printing in the past. Daily laboratory will be used to follow the patient's renal function including a CBC, metabolic profile and magnesium level. (5) Diabetes mellitus type 2 in nonobese Is this a current diagnosis for this admission?: Yes Plan: Hemoglobin A1c will be obtained and the patient will be maintained on a diabetic/cardiac/dialysis diet and will have a sliding scale regular insulin treatment of hyperglycemia detected on before meals and at bedtime Accu-Chek blood sugars. (6) Hyperlipidemia Qualifiers: Hyperlipidemia type: familial hypercholesterolemia Qualified Code(s): E78.01 - Familial hypercholesterolemia Is this a current diagnosis for this admission?: Yes Plan: Lipid profile will be obtained for general evaluation of the patient's lipid status. Consideration of intervention will be based upon his lipid profile res ults. (7) Hypertension Qualifiers: Hypertension type: renovascular hypertension Qualified Code(s): I15.0 - Renovascular hypertension Is this a current diagnosis for this admission?: Yes Plan: Patient be continued on his usual antihypertensive regimen. Hydralazine 20 mg I V every 4 hours will be administered on a as needed basis for blood pressures in excess of 160 systolic or 100 diastolic. - Time Time Spent with patient: 25-34 minutes Medications reviewed and adjusted accordingly: Yes Anticipated discharge: [place] Within: within 48 hours
[2018-09-26 23:07] LABS: FREE T3 3.79 pg/mL (2.77-5.27); FREE T4 (FREE THYROXINE) 0.71 ng/dL (0.78-2.19)
[2018-09-26] MEDS: INSULIN REG, HUMAN 100 UNIT/ML 3 ML VIAL (PYX) SUBCUT SCH (23:19)
[2018-09-26] MEDS: GABAPENTIN 400 MG CAPSULE PO SCH (23:19)
[2018-09-27 00:44] LABS: ABSOLUTE EOSINOPHILS # (AUTO) 0.2 10^3/uL (0.0-0.6); ABSOLUTE LYMPHOCYTES (AUTO) 0.6 10^3/uL (0.5-4.7); ABSOLUTE MONOCYTES (AUTO) 0.7 10^3/uL (0.1-1.4); ABSOLUTE NEUT (AUTO) 3.5 10^3/uL (1.7-8.2); BASOPHILS % (AUTO) 0.1 % (0-2); EOSINOPHILS % (AUTO) 3.9 % (0-6); HEMATOCRIT 34.4 % (37.9-51.0); LYMPHOCYTES % (AUTO) 11.5 % (13-45); MEAN CORPUSCULAR HEMOGLOBIN 28.3 pg (27.0-33.4); MEAN CORPUSCULAR VOLUME 88 fl (80-97); MONOCYTES % (AUTO) 13.4 % (3-13); PLATELET COUNT 142 10^3/uL (150-450); RED BLOOD COUNT 3.89 10^6/uL (4.35-5.55); RED CELL DISTRIBUTION WIDTH 17.2 % (11.5-14.0); SEGMENTED NEUTROPHILS % (AUTO) 71.1 % (42-78); TOTAL CELLS COUNTED % (AUTO) 100 %; WHITE BLOOD COUNT 4.9 10^3/uL (4.0-10.5)
[2018-09-27 00:50] LABS: INTERNATIONAL RATION (INR) 1.16; PROTHROMBIN TIME 15.4 SEC (11.4-15.4)
[2018-09-27 00:52] LABS: PARTIAL THROMBOPLASTIN TIME 71.6 SEC (23.5-35.8)
[2018-09-27] MEDS: GABAPENTIN 400 MG CAPSULE PO SCH ×2 (07:37→14:22)
[2018-09-27 07:46] LABS: ABSOLUTE BASOPHILS # (AUTO) 0.1 10^3/uL (0.0-0.2); ABSOLUTE EOSINOPHILS # (AUTO) 0.2 10^3/uL (0.0-0.6); ABSOLUTE LYMPHOCYTES (AUTO) 0.5 10^3/uL (0.5-4.7); ABSOLUTE MONOCYTES (AUTO) 0.7 10^3/uL (0.1-1.4); ABSOLUTE NEUT (AUTO) 3.1 10^3/uL (1.7-8.2); BASOPHILS % (AUTO) 1.2 % (0-2); EOSINOPHILS % (AUTO) 4.5 % (0-6); HEMATOCRIT 37.1 % (37.9-51.0); HEMOGLOBIN 11.9 g/dL (13.5-17.0); LYMPHOCYTES % (AUTO) 11.3 % (13-45); MEAN CORPUSCULAR HEMOGLOBIN 28.6 pg (27.0-33.4); MEAN CORPUSCULAR VOLUME 89 fl (80-97); MONOCYTES % (AUTO) 14.9 % (3-13); PLATELET COUNT 151 10^3/uL (150-450); RED BLOOD COUNT 4.16 10^6/uL (4.35-5.55); RED CELL DISTRIBUTION WIDTH 17.2 % (11.5-14.0); SEGMENTED NEUTROPHILS % (AUTO) 68.1 % (42-78); TOTAL CELLS COUNTED % (AUTO) 100 %; WHITE BLOOD COUNT 4.5 10^3/uL (4.0-10.5)
[2018-09-27 08:13] LABS: BLOOD UREA NITROGEN 48 mg/dL (7-20); GLUCOSE 91 mg/dL (75-110); TRIGLYCERIDES 132 mg/dL (<150)
[2018-09-27 08:18] LABS: CARBON DIOXIDE 30 mmol/L (22-30); CHLORIDE 92 mmol/L (98-107); SODIUM 141.3 mmol/L (137-145)
[2018-09-27 08:23] LABS: DIRECT LDL 49 mg/dL (<100)
[2018-09-27 08:36] LABS: ANION GAP 19 (5-19)
[2018-09-27] MEDS: INSULIN REG, HUMAN 100 UNIT/ML 3 ML VIAL (PYX) SUBCUT SCH ×3 (08:37→17:20)
[2018-09-27] MEDS: SEVELAMER HCL 800 MG TABLET PO SCH ×3 (08:58→17:39)
[2018-09-27] MEDS: DOCUSATE SODIUM 100 MG CAPSULE PO SCH ×2 (09:07→17:39)
[2018-09-27] MEDS: PANTOPRAZOLE SODIUM 40 MG VIAL IV SCH (09:10)
[2018-09-27] MEDS: SODIUM POLYSTYRENE SULFONATE 15 GM/60 ML PO SCH (09:14)
[2018-09-27] MEDS ORDERED: AMLODIPINE BESYLATE 5 MG TABLET PO SCH (10:00)
[2018-09-27] MEDS ORDERED: VITAMIN E MIXED 400 UNIT PO SCH (10:00)
[2018-09-27] MEDS ORDERED: VITAMIN E (DL, ACETATE) 400 UNIT CAPSULE PO SCH (10:00)
[2018-09-27] MEDS ORDERED: FLUOXETINE HCL 20 MG CAPSULE PO SCH (10:00)
[2018-09-27] MEDS ORDERED: ASPIRIN 81 MG TABLET, ENT COATED PO SCH (10:00)
[2018-09-27] MEDS ORDERED: TAMSULOSIN HCL 0.4 MG CAP.SR.24H PO SCH (10:00)
[2018-09-27] MEDS ORDERED: MULTIVITAMIN TABLET PO SCH (10:00)
[2018-09-27] MEDS ORDERED: ALLOPURINOL 100 MG TABLET PO SCH (10:00)
[2018-09-27] MEDS ORDERED: CHOLECALCIFEROL (D3) 1,000 UNIT TABLET PO SCH (10:00)
[2018-09-27] MEDS ORDERED: CYANOCOBALAMIN (VITAMIN B-12) 1,000 MCG TABLET PO SCH (10:00)
[2018-09-27] MEDS ORDERED: ISOSORBIDE MONONITRATE 30 MG TAB.ER.24H PO SCH (10:00)
--- NOTE | 2018-09-27 19:59 | ER Document Report ---
Doctor's Note Notes: 09/27/18 19:55 Patient finally has a bed at [facility] and a truck is in route to pick the patient up. Patient is stable. Current blood pressure 158/67. Heart rate 78. O2 sat 97% on room air. Patient is usually dialyzed Sunday, , and Sunday. He did get dialyzed yesterday, . Lab work was stable. Patient appears to be medically stable for transfer. Janna Redd MD
[2018-09-27 20:23] VITALS: BP 159/69
[2018-09-27] MEDS: MORPHINE SULFATE 10 MG/ML INJ IV PRN (20:46)
--- NOTE | 2018-09-27 20:59 | PDOC PROGRESS REPORT ---
Subjective Progress Note for:: 09/27/18 Subjective:: Ischemic complications of the right leg after recent vascular bypass. Patient has history of diabetes mellitus with end-stage kidney disease requiring hemodialysis. He had a left below-knee amputation that was converted to an above-knee amputation because of peripheral arterial disease. He now has ulcerations on the right leg and toes. Reason For Visit: FOOT PAIN Physical Exam Vital Signs: Temp Pulse Resp BP Pulse Ox 98.2 F 83 23 H 187/145 H 93 09/26/18 14:35 09/27/18 15:30 09/27/18 15:00 09/27/18 14:01 09/27/18 15:00 Intake & Output 09/26/18 09/27/18 09/28/18 06:59 06:59 06:59 Weight 73.9 kg General appearance: PRESENT: no acute distress, cooperative, well-developed Head exam: PRESENT: atraumatic, normocephalic Eye exam: PRESENT: conjunctiva pink. ABSENT: scleral icterus Ear exam: PRESENT: normal external ear exam Mouth exam: PRESENT: moist, tongue midline Respiratory exam: PRESENT: rales - Faint rales bilaterally especially lower lung black, symmetrical, unlabored. ABSENT: accessory muscle use, rhonchi, tachypnea, wheezes Cardiovascular exam: PRESENT: RRR, +S1, +S2, systolic murmur - 3/6 systolic murmur Pulses: PRESENT: other - Significantly diminished dorsalis pedis and posterior tibial pulses Vascular exam: PRESENT: other - AV fistula in the left arm for hemodialysis GI/Abdominal exam: PRESENT: normal bowel sounds, soft. ABSENT: distended, guarding, tenderness Rectal exam: PRESENT: deferred Gentrourinary exam: ABSENT: indwelling catheter Extremities exam: PRESENT: other - Left above-knee amputation (old). ABSENT: pedal edema Musculoskeletal exam: PRESENT: other - Decreased muscle mass in the right leg Neurological exam: PRESENT: alert, awake, oriented to person, oriented to place, oriented to time, oriented to situation, CN II-XII grossly intact Psychiatric exam: PRESENT: appropriate affect, normal mood. ABSENT: agitated, anxious Focused psych exam: ABSENT: delusional, restlessness Skin exam: PRESENT: other - There are multiple lesions on the right leg. The right fourth toe has a markedly discolored/darkened area suggesting a gangrenous ulcer. There are shallow ulcerations on the foot as well as the anterior tibial aspect. There is a dressing on the right knee. The patient acknowledges that this is from a recent fall. Although not cold the patient has diminished pulses in the right foot and ankle. Results Laboratory Results: 09/27/18 07:32 09/27/18 07:32 09/26/18 09/27/18 09/27/18 15:50 00:24 07:32 WBC 4.9 4.5 RBC 3.89 L 4.16 L Hgb 11.0 L 11.9 L Hct 34.4 L 37.1 L MCV 88 89 MCH 28.3 28.6 MCHC 32.0 32.0 RDW 17.2 H 17.2 H Plt Count 142 L 151 Seg Neutrophils % 71.1 68.1 Lymphocytes % 11.5 L 11.3 L Monocytes % 13.4 H 14.9 H Eosinophils % 3.9 4.5 Basophils % 0.1 1.2 Absolute Neutrophils 3.5 3.1 Absolute Lymphocytes 0.6 0.5 Absolute Monocytes 0.7 0.7 Absolute Eosinophils 0.2 0.2 Absolute Basophils 0.0 0.1 Sodium Potassium Chloride Carbon Dioxide Anion Gap BUN Creatinine Est GFR ( Amer) Est GFR (Non-Af Amer) Glucose Calcium Magnesium Triglycerides Cholesterol LDL Cholesterol Direct VLDL Cholesterol HDL Cholesterol TSH Free T4 0.71 L Free T3 pg/mL 3.79 09/27/18 09/27/18 07:32 07:32 WBC RBC Hgb Hct MCV MCH MCHC RDW Plt Count Seg Neutrophils % Lymphocytes % Monocytes % Eosinophils % Basophils % Absolute Neutrophils Absolute Lymphocytes Absolute Monocytes Absolute Eosinophils Absolute Basophils Sodium 141.3 Potassium 5.0 Chloride 92 L Carbon Dioxide 30 Anion Gap 19 BUN 48 H Creatinine 8.75 H Est GFR ( Amer) 7 L Est GFR (Non-Af Amer) 6 L Glucose 91 Calcium 9.0 Magnesium 2.0 Triglycerides 132 Cholesterol 137.80 LDL Cholesterol Direct 49 VLDL Cholesterol 26.0 HDL Cholesterol 64 TSH 3.71 Free T4 Free T3 pg/mL Impressions: Foot X-Ray 09/26/18 15:01 IMPRESSION: 1. No fracture or dislocation of the right foot. Redemonstrated postoperative findings of distal right 5th metatarsal resection. 2. There is bony resorption of the distal phalanx great toe seen on AP view, new from prior examination dated 12/04/2014 and concerning for osteomyelitis. 3. Evaluation of the remaining digits is difficult due to flexion although there is no obvious erosion or sclerosis. Consider MRI to more sensitively evaluate for marrow edema and osteomyelitis if suspected. Knee X-Ray 09/26/18 15:01 IMPRESSION: No fracture or dislocation of the right knee. Assessment and Plan - Diagnosis (1) Ischemic gangrene Is this a current diagnosis for this admission?: Yes Plan: Patient is currently on heparin at a high dose anticoagulation rate and this will be managed by the emergency room physicians per protocol. This will be continued per the advice of Dr. Ortega, the patient's vascular surgeon at [facility]. Should the patient develop any pain related to his vascular disease he will receive morphine sulfate 2 to 4 mg IV every 2 hours on a as needed basis via a sliding scale. Daily CBC will be monitored as part of his ongoing evaluation. 09/27/2018-patient is resting comfortably this evening. Changes as noted above. He is awaiting a bed at [facility] to be admitted and reassessed by his vascular surgeon. At this time we will continue his aspirin and long-acting nitrate therapy. (2) Peripheral vascular disease Is this a current diagnosis for this admission?: Yes Plan: Patient will be continued on his heparin at high dose therapy levels as managed by the emergency room physicians per protocol. He will receive symptomatic and supportive care as required. Transferred to [facility] for further evaluation and treatment will be undertaken as soon as a bed is a vailable. A lipid profile will be obtained in the patient's diabetes will be monitored closely and hyperglycemia will be treated as needed. 09/27/2018-the patient is on heparin infusion to try and optimize flow. As noted above he is also on antiplatelet therapy. The emergency room physician is rolly naging the heparin infusion. Clearly the right third toe has gangrenous changes. We did briefly discuss the potential for amputation. I certainly defer to the vascular surgeon. Interestingly, the patient is not on statin therapy at this time. He does have an excellent lipid profile. (3) Hyperkalemia Is this a current diagnosis for this admission?: Yes Plan: Patient will be continued on his usual medications for his ESRD. This will include Kayexalate or other potassium excretion drugs if Kayexalate is not available. Patient's electrolytes will be monitored on a regular basis utilizing daily basic metabolic profiles and magnesium levels. Additionally a daily CBC will be monitored. 09/27/2018-the patient's serum potassium was 5.0 earlier. A metabolic panel is pending. The hyperkalemia is a result of his end-stage kidney disease. Will treat if patient is symptomatic. He is supposed to receive dialysis tomorrow. (4) End stage renal failure on dialysis Is this a current diagnosis for this admission?: Yes Plan: The patient's nephrology should be consulted to provide for dialysis if necessary before the patient can be transferred. He was dialyzed earlier today and had a 4 pound weight loss due to dialysis. Dr. Portillo has been his nephro logist in the past. Daily laboratory will be used to follow the patient's renal function including a CBC, metabolic profile and magnesium level. 09/27/2018-the patient receives dialysis on Sunday, and Sunday. [facility] was expecting a bed to open within 24 to 48 hours. I will defer to the emergency department physician with regard to making arrangements if the patient remains at this facility on his scheduled dialysis day. (5) Diabetes mellitus type 2 in nonobese Is this a current diagnosis for this admission?: Yes Plan: Hemoglobin A1c will be obtained and the patient will be maintained on a diabetic/cardiac/dialysis diet and will have a sliding scale regular insulin treatment of hyperglycemia detected on before meals and at bedtime Accu-Chek blood sugars. 09/27/2018-the patient exhibits excellent glucose control on diet alone. His hemoglobin A1c is less than 6 and his Accu-Cheks are consistently good. He is getting Accu-Cheks before meals and at bedtime and has a sliding insulin scale available. (6) Hyperlipidemia Qualifiers: Hyperlipidemia type: familial hypercholesterolemia Qualified Code(s): E78. 01 - Familial hypercholesterolemia Is this a current diagnosis for this admission?: Yes Plan: Lipid profile will be obtained for general evaluation of the patient's lipid status. Consideration of intervention will be based upon his lipid profile results. 09/27/2018-the patient has an excellent lipid profile. Consideration of statin therapy for prophylaxis of further atherosclerosis might be given, especially with history of diabetes, but I will defer to the vascular surgeon. (7) Hypertension Qualifiers: Hypertension type: renovascular hypertension Qualified Code(s): I15.0 - Renovascular hypertension Is this a current diagnosis for this admission?: Yes Plan: Patient be continued on his usual antihypertensive regimen. Hydralazine 20 mg IV every 4 hours will be administered on a as needed basis for blood pressures in excess of 160 systolic or 100 diastolic. 09/27/2018-the patient is currently on amlodipine 5 mg daily as well as indoor 30 mg daily and has as needed medications available for the parameters outlined above. - Time Time Spent with patient: 15-24 minutes Medications reviewed and adjusted accordingly: Yes Anticipated discharge: [place] Within: within 24 hours
[2018-09-27 21:05] LABS: BLOOD UREA NITROGEN 58 mg/dL (7-20); CALCIUM 8.1 mg/dL (8.4-10.2); GLUCOSE 120 mg/dL (75-110); POTASSIUM 4.9 mmol/L (3.6-5.0)
[2018-09-27 21:10] LABS: ANION GAP 19 (5-19); CARBON DIOXIDE 23 mmol/L (22-30); CHLORIDE 94 mmol/L (98-107)
== END 2018-09-27 21:10 | disposition short-term general hospital (02) ==
LOC: ER 14:30
DX: E87.5 Hyperkalemia (principal); I96 Gangrene, not elsewhere classified; M79.671 Pain in right foot; E11.9 Type 2 diabetes mellitus without complications; Z89.612 Acquired absence of left leg above knee; E78.5 Hyperlipidemia, unspecified; I12.0 Hypertensive chronic kidney disease with stage 5 chronic kidney disease or end stage renal disease; N18.6 End stage renal disease; Z99.2 Dependence on renal dialysis; I48.91 Unspecified atrial fibrillation; Z95.1 Presence of aortocoronary bypass graft; Z95.0 Presence of cardiac pacemaker
CPT/HCPCS: 93005; 99284; 36415; 87040; 84439; 82962; 83605; 83735; 84443; 85025; 85610; 85730; 80048; 80053; 84481; 83036; 82803; 80061; 93926 ×2; 73630; 73564; 93010; A9270 ×14; J1644 ×2; J2270 ×2; C9113 ×2; J2405; J3490; S0164